=== PATIENT | female | born 1965 | race Caucasian/White ===

== ENCOUNTER 2018-07-05 09:43 | Inpatient (IN) | payer BC ==
[2018-07-05] MEDS: NITROGLYCERIN 2% 1 GM OINT PKT TD (10:33)
[2018-07-05 10:59] LABS: ADD MAN DIFF? NO
[2018-07-05] MEDS ORDERED: NITROGLYCERIN (SL) 0.4 MG TAB SL ×2 (11:00→14:00)
[2018-07-05 11:03] LABS: WHITE BLOOD COUNT 5.2 10^3/ul (4.8-10.8)
[2018-07-05 11:03] LABS: BASOPHIL # 0.1 10^3/ul (0.0-0.1); BASOPHILS % 1.1 % (0.0-2.0); EOSINOPHILS % 0.8 % (0.0-7.0); HEMATOCRIT 37.1 % (37.0-47.0); HEMOGLOBIN 11.7 g/dl (12.0-16.0); LYMPHOCYTES # 1.6 10^3/ul (0.8-2.9); LYMPHOCYTES % 31.3 % (15.0-51.0); MEAN CORPUSCULAR HEMOGLOBIN 28.4 pg (29.0-33.0); MEAN CORPUSCULAR HGB CONC 31.5 g/dl (32.0-37.0); MEAN PLATELET VOLUME 10.4 fl (7.4-10.4); MONOCYTE # 0.4 10^3/ul (0.3-0.9); NEUTROPHIL # 3.1 10^3/ul (1.6-7.5); NEUTROPHILS % 58.4 % (39.0-77.0); PLATELET COUNT 257 10^3/UL (140-415); RED BLOOD COUNT 4.12 10^6/ul (4.20-5.40); RED CELL DISTRIBUTION WIDTH 12.8 % (11.5-14.5)
[2018-07-05 11:23] LABS: ANION GAP 10 (5-13); BLOOD UREA NITROGEN 12 mg/dl (7-20); CALCIUM 8.9 mg/dl (8.4-10.2); CARBON DIOXIDE 26 mmol/L (21-31); CHLORIDE 105 mmol/L (97-110); CREATININE 0.69 mg/dl (0.44-1.00); Estimated GFR > 60 mL/min (>60); GLUCOSE 94 mg/dl (70-220); POTASSIUM 3.9 mmol/L (3.5-5.1); SODIUM 141 mmol/L (135-144)
[2018-07-05 11:33] LABS: TROPONIN-I < 0.012 ng/ml (0.000-0.120)
[2018-07-05] MEDS ORDERED: ONDANSETRON 4 MG INJ IV (12:00)
[2018-07-05] MEDS: ACETAMINOPHEN 325 MG TAB PO ×2 (13:25→21:09)
[2018-07-05] MEDS ORDERED: DOCUSATE SODIUM 100 MG CAP PO (14:00)
[2018-07-05] MEDS ORDERED: NACL 0.9% 3 ML SYG IV (14:00)
[2018-07-05] MEDS ORDERED: MAGNESIUM HYDROXIDE 30ML CUP PO (14:00)
[2018-07-05] MEDS ORDERED: morphine 2 MG INJ IV (14:00)
[2018-07-05] MEDS: HYDROCODONE/APAP (5/325) TAB PO (15:19)
[2018-07-05 16:58] LABS: CREATINE KINASE 32 IU/L (23-200)
[2018-07-05 17:12] LABS: CK INDEX 0.8; CK-MB 0.25 ng/ml (0.0-2.4); TROPONIN-I < 0.012 ng/ml (0.000-0.120)
[2018-07-05 18:23] LABS: ADD UMIC YES; UR ASCORBIC ACID NEGATIVE (NEGATIVE); UR BACTERIA FEW /HPF (NONE SEEN); UR BILIRUBIN (Dip) NEGATIVE (NEGATIVE); UR BLOOD (Dip) 1+ mg/dL (NEGATIVE); UR CLARITY SLIGHTLY CLOUDY (CLEAR); UR COLOR YELLOW (YELLOW); UR GLUCOSE (Dip) NEGATIVE (NEGATIVE); UR KETONES (Dip) TRACE mg/dL (NEGATIVE); UR LEUKOCYTE ESTERASE (Dip) NEGATIVE Leu/ul (NEGATIVE); UR MUCUS MANY /HPF (NONE SEEN); UR NITRITE (Dip) NEGATIVE (NEGATIVE); UR RBC 2 /HPF (0-5); UR SPECIFIC GRAVITY (Dip) 1.018 (1.003-1.030); UR SQUAMOUS EPITHELIAL CELL FEW /HPF (FEW); UR TOTAL PROTEIN (Dip) NEGATIVE (NEGATIVE); UR UROBILINOGEN (Dip) NEGATIVE (NEGATIVE); UR WBC 2 /HPF (0-5)
[2018-07-05] MEDS: FAMOTIDINE 20 MG TAB PO (20:58)
[2018-07-05 22:41] LABS: CREATINE KINASE 29 IU/L (23-200)
[2018-07-05 22:55] LABS: CK INDEX 0.8; CK-MB 0.23 ng/ml (0.0-2.4); TROPONIN-I < 0.012 ng/ml (0.000-0.120)
[2018-07-05] MEDS: ONDANSETRON 4 MG INJ IV (23:38)
[2018-07-06 05:36] LABS: ADD MAN DIFF? NO
[2018-07-06 05:40] LABS: WHITE BLOOD COUNT 7.3 10^3/ul (4.8-10.8)
[2018-07-06 05:40] LABS: BASOPHIL # 0.1 10^3/ul (0.0-0.1); BASOPHILS % 0.7 % (0.0-2.0); EOSINOPHILS % 0.3 % (0.0-7.0); HEMATOCRIT 33.8 % (37.0-47.0); LYMPHOCYTES # 1.9 10^3/ul (0.8-2.9); MEAN CORPUSCULAR HEMOGLOBIN 28.4 pg (29.0-33.0); MEAN CORPUSCULAR HGB CONC 32.5 g/dl (32.0-37.0); MEAN CORPUSCULAR VOLUME 87.3 fl (82.0-101.0); MEAN PLATELET VOLUME 10.4 fl (7.4-10.4); MONOCYTE # 0.5 10^3/ul (0.3-0.9); MONOCYTES % 7.3 % (0.0-11.0); NEUTROPHIL # 4.8 10^3/ul (1.6-7.5); NEUTROPHILS % 65.2 % (39.0-77.0); PLATELET COUNT 260 10^3/UL (140-415); RED BLOOD COUNT 3.87 10^6/ul (4.20-5.40); RED CELL DISTRIBUTION WIDTH 12.9 % (11.5-14.5)
[2018-07-06 06:02] LABS: HEMOGLOBIN A1C 5.2 % (0-5.9)
[2018-07-06 06:30] LABS: ALANINE AMINOTRANSFERASE 22 IU/L (13-69); ALBUMIN/GLOBULIN RATIO 1.25; ALKALINE PHOSPHATASE 76 IU/L (42-121); ANION GAP 8 (5-13); ASPARTATE AMINO TRANSFERASE 20 IU/L (15-46); BILIRUBIN,INDIRECT 0.3 mg/dl (0-1.1); BILIRUBIN,TOTAL 0.3 mg/dl (0.2-1.3); BLOOD UREA NITROGEN 11 mg/dl (7-20); CALCIUM 8.9 mg/dl (8.4-10.2); CARBON DIOXIDE 26 mmol/L (21-31); CHLORIDE 106 mmol/L (97-110); Estimated GFR > 60 mL/min (>60); GLUCOSE 99 mg/dl (70-220); POTASSIUM 3.6 mmol/L (3.5-5.1); SODIUM 140 mmol/L (135-144); TOTAL PROTEIN 7.2 g/dl (6.1-8.1)
[2018-07-06] MEDS: FAMOTIDINE 20 MG TAB PO ×2 (10:02→20:12)
[2018-07-06] MEDS: ENOXAPARIN 30 MG/0.3 ML SYG SC (10:54)
[2018-07-06] MEDS: ISOSORBIDE DINITRATE 20 MG TAB PO (20:13)
[2018-07-06] MEDS: METOPROLOL 25 MG TAB PO (20:13)
[2018-07-07 06:11] LABS: TROPONIN-I < 0.012 ng/ml (0.000-0.120)
[2018-07-07] MEDS: FAMOTIDINE 20 MG TAB PO ×2 (09:09→20:14)
[2018-07-07] MEDS: ISOSORBIDE DINITRATE 20 MG TAB PO ×3 (09:09→20:15)
[2018-07-07] MEDS: METOPROLOL 25 MG TAB PO ×2 (09:10→20:16)
[2018-07-07] MEDS: ACETAMINOPHEN 325 MG TAB PO (09:14)
[2018-07-07] MEDS: ENOXAPARIN 30 MG/0.3 ML SYG SC (09:15)
[2018-07-07] MEDS: REGADENOSON 0.4 MG/5 ML SYG ×2 (11:22→12:10)
[2018-07-07] MEDS: IBUPROFEN 600 MG TAB PO (13:01)
[2018-07-07] MEDS: ONDANSETRON 4 MG INJ IV (13:02)
[2018-07-07] MEDS ORDERED: METOCLOPRAMIDE 10 MG INJ IV (13:30)
[2018-07-07] MEDS: KETOROLAC 30 MG INJ IV (13:35)
[2018-07-07] MEDS: PROMETHAZINE 25 MG TAB PO (15:12)
[2018-07-07 19:53] LABS: AMPHETAMINE/METHAMPHETAMINE Negative (NEGATIVE); BENZODIAZEPINES Negative (NEGATIVE); CANNABINOIDS Negative (NEGATIVE); COCAINE Negative (NEGATIVE); OPIATES Negative (NEGATIVE)
[2018-07-07] MEDS: ATORVASTATIN 80 MG TAB PO (20:14)
[2018-07-07 20:19] LABS: BARBITURATES Positive (NEGATIVE)
[2018-07-08] MEDS: IBUPROFEN 600 MG TAB PO (06:20)
[2018-07-08] MEDS: FAMOTIDINE 20 MG TAB PO (08:28)
[2018-07-08] MEDS: ISOSORBIDE DINITRATE 20 MG TAB PO (08:29)
[2018-07-08] MEDS: METOPROLOL 25 MG TAB PO (08:29)
[2018-07-08] MEDS: ENOXAPARIN 30 MG/0.3 ML SYG SC (08:32)
[2018-07-08 14:22] LABS: CHOLESTEROL 214 mg/dl (100-200)
[2018-07-08 14:22] LABS: CHOL/HDL RATIO 5.6 RATIO; HDL CHOLESTEROL 38 mg/dl (37-92); LDL CHOLESTEROL,CALCULATED 127 mg/dl; TRIGLYCERIDES 244 mg/dl (0-149)
[2018-07-08] MEDS: hydrALAzine 20 MG INJ IV (18:02)
== END 2018-07-08 19:35 | disposition home or self-care (01) | DRG 313 ==
LOC: E/R 09:43 → 6WM 11:53
DX: R07.9 Chest pain, unspecified (principal); G43.109 Migraine with aura, not intractable, without status migrainosus; S99.922A Unspecified injury of left foot, initial encounter; W19.XXXA Unspecified fall, initial encounter; R42 Dizziness and giddiness; R03.0 Elevated blood-pressure reading, without diagnosis of hypertension; D64.9 Anemia, unspecified
CPT/HCPCS: 36415; 70450; 70553; 71045; 73630-LT; 78452; 80048; 80053; 80061; 80307; 81001; 82550; 82553; 83036; 84484; 85025; 93005; 93017; 93306; 99285-25; G0378